=== PATIENT | male | born 2000 | race Caucasian/White ===

== ENCOUNTER 2023-01-31 07:03 | Day surgery (SDC) | payer OTHER ==
[2023-01-27 14:12] VITALS: BMI 23.3
[2023-01-31] MEDS ORDERED: Oxymetazoline HCl 0.05% (30 ML BOT) ONE ×2 (07:53→09:31)
[2023-01-31] MEDS ORDERED: Lidocaine 1% (PF) 30 ML VIAL ONE (09:31)
[2023-01-31] MEDS ORDERED: Bacitracin Zinc Ointment 30 gm TUBE ONE (09:31)
[2023-01-31] MEDS ORDERED: EPINEPHrine 1 MG/ML AMP ONE (09:31)
[2023-01-31] MEDS ORDERED: fentaNYL PF 100 MCG/2 ML SYRINGE ONE (09:37)
[2023-01-31] MEDS ORDERED: Famotidine/PF 20 mg/2ml Vial ONE (09:37)
[2023-01-31] MEDS ORDERED: Dexamethasone 20 MG/5 ML VIAL ONE (09:47)
[2023-01-31] MEDS ORDERED: PROPOFOL 200 MG/20 ML VIAL ONE (09:47)
[2023-01-31] MEDS ORDERED: NEOSTIGMINE 3 MG/3 ML SYR 3 MG/3 ML SYRINGE ONE (09:47)
[2023-01-31] MEDS ORDERED: Glycopyrrolate 0.2 MG/ML 5 ML SYRINGE ONE (09:47)
[2023-01-31] MEDS ORDERED: Rocuronium Bromide 10 MG/ML (10ML VIAL) ONE (09:47)
[2023-01-31] MEDS ORDERED: Ondansetron PF 4 MG/2 ML Vial ONE (09:47)
[2023-01-31] MEDS ORDERED: Lidocaine 1% PF 5 ML VIAL ONE (09:47)
[2023-01-31] MEDS ORDERED: ePHEDrine Sulfate 50 MG/10 ML VIAL ONE (09:47)
[2023-01-31] MEDS ORDERED: Clindamycin/D5W 900 mg/50 ml Premix Bag ONE (09:58)
[2023-01-31] MEDS ORDERED: Acetaminophen 500 MG TAB ONE (14:25)
== END 2023-01-31 14:37 | disposition home or self-care (01) ==
LOC: SDC 07:03
PROVIDERS: ATTEND Student in an Organized Health Care Education/Training Program
PROC: 09BM0ZZ Excision of Nasal Septum, Open Approach (ICD-10-PCS; principal; 2023-01-31)
DX: R09.81 Nasal congestion (principal); J34.2 Deviated nasal septum; J30.9 Allergic rhinitis, unspecified; J34.3 Hypertrophy of nasal turbinates; J32.9 Chronic sinusitis, unspecified; J34.89 Other specified disorders of nose and nasal sinuses; B34.9 Viral infection, unspecified
CPT/HCPCS: J0171; J1100; J2001; J2405; J2704; J3490; S0028